=== PATIENT | male | born 1990 | race Two or more races ===

== ENCOUNTER 2020-07-14 09:56 | Emergency (ER) | payer SELFPAY ==
[~2020-07-14] VITALS: Ht 152.4 cm; Wt 64.0 kg
[2020-07-14] MEDS ORDERED: NAPR250T4 PO (09:58)
[2020-07-14] MEDS ORDERED: PERTUSS(ACELL),DIPH,TET VAC/PF 0.5 ML VIAL IM ONE (12:00)
[2020-07-14 13:02] VITALS: BP 129/81
== END 2020-07-14 13:16 | disposition home or self-care (01) ==
LOC: EMS 09:59
DX: S91.331A Puncture wound without foreign body, right foot, initial encounter (principal); L03.115 Cellulitis of right lower limb; W22.8XXA Striking against or struck by other objects, initial encounter; Y93.89 Activity, other specified; Y92.89 Other specified places as the place of occurrence of the external cause; Y99.8 Other external cause status
CPT/HCPCS: 90471; 90715